=== PATIENT | male | born 1955 | race Caucasian/White ===

== ENCOUNTER 2016-05-09 18:47 | Emergency (ER) | payer MEDICAID ==
[2016-05-09 19:04] VITALS: PULSE 87; TEMP 97.9
[2016-05-09 19:07] LABS: % IMMATURE GRANULYOCYTES 0.5 % (0.0-1.1); ABSOLUTE IMMATURE GRANULOCYTES 0.05 10^3/uL (0.00-0.10); ADD DIFF? NO; ADD MORPH? NO; ADD SCAN? NO; ATYPICAL LYMPHOCYTE FLAG 10 (0-99); FRAGMENT RBC FLAG 0 (0-99); HEMOGLOBIN 16.4 g/dL (13.7-17.5); LEFT SHIFT FLG 0 (0-99); LIPEMIA HEMOLYSIS FLAG 80 (0-99); MEAN CELL HEMOGLOBIN 30.1 pg (27.9-34.1); MEAN CELL HEMOGLOBIN CONCENTR. 33.5 g/dL (32.4-36.7); MEAN CELL VOLUME 90.1 fL (81.5-99.8); PLATELET CLUMPS FLAG 10 (0-99); PLATELET COUNT 226 10^3/uL (150-400); RED BLOOD CELL COUNT 5.44 10^6/uL (4.40-6.38); RED CELL DISTRIBUTION WIDTH 13.5 % (11.5-15.2)
--- NOTE | 2016-05-09 19:12 | CPEKG ---
Heart Rate: 100 RR Interval: 600 P-R Interval: 176 QRSD Interval: 100 QT Interval: 364 QTC Interval: 470 P [place]: 77 QRS [place]: -26 T Wave [place]: 66 EKG Severity - OTHERWISE NORMAL ECG - EKG Impression: SINUS TACHYCARDIA EKG Impression: BORDERLINE LEFT AXIS DEVIATION Electronically Signed By: David Gonzalez 09-May-2016 21:06:18
--- NOTE | 2016-05-09 19:14 | EDPHY ---
H & P Stated Complaint: First Time Seizure Time Seen by Provider: 05/09/16 18:51 HPI/ROS: CHIEF COMPLAINT: First-time seizure HISTORY OF PRESENT ILLNESS: The patient presents to the emergency department via paramedics after a first-time seizure. The patient reportedly had a witnessed seizure lasting 3-4 minutes. He bit his tongue. The patient was postictal. The patient is accompanied by family members who observe the seizure. The patient did not fall or strike his head in a significant way. He did fall into some shelving which braced his fall to the ground. The patient takes only omeprazole. He has no prior history of seizure. The patient does not use drugs or alcohol. The patient currently complains of mild confusion and slight amnesia surrounding the events prior to arrival. His only complaint in the ED is a tongue bite/laceration. REVIEW OF SYSTEMS: A comprehensive 10 point review of systems is otherwise negative aside from elements mentioned in the history of present illness. Source: Patient, Family, EMS - Personal History Current Tetanus Diphtheria and Acellular Pertussis (TDAP): Yes Tetanus Vaccine Date: within 10 years - Medical/Surgical History Hx Asthma: No Hx Chronic Respiratory Disease: No Hx Diabetes: No Hx Cardiac Disease: No Hx Renal Disease: No Hx Cirrhosis: No Hx Alcoholism: No Hx HIV/AIDS: No Hx Splenectomy or Spleen Trauma: No Other PMH: GERD - Social History Smoking Status: Never smoked - Physical Exam Exam: General Appearance: Alert, postictal Eyes: Pupils equal and round no pallor or injection ENT, Mouth: Mucous membranes moist, tongue laceration noted, nonsuturable Respiratory: There are no retractions, lungs are clear to auscultation Cardiovascular: Regular rate and rhythm Gastrointestinal: Abdomen is soft and nontender, no masses, bowel sounds normal x2, non agitated Neurological: Alert and oriented x2, postictal, 5/5 strength all 4 extremities Skin: Warm and dry, no rashes Musculoskeletal: Neck is supple nontender Extremities: symmetrical, full range of motion Psychiatric: Alert and oriented Constitutional: Initial Vital Signs Temperature (C) 36.6 C 05/09/16 19:01 Heart Rate 87 05/09/16 19:01 Respiratory Rate 16 05/09/16 19:01 Blood Pressure 119/87 H 05/09/16 19:01 O2 Sat (%) 97 05/09/16 19:01 O2 Delivery Mode Room Air Allergies/Adverse Reactions: No Known Allergies Allergy (Unverified 05/09/16 19:00) Home Medications: Medication Instructions Recorded Omeprazole 05/09/16 Medical Decision Making - Diagnostics EKG Interpretation: EKG: Complete interpretation has been separately recorded in the [facility] archive. Summary impression: Sinus tachycardia, rate 100 Imaging: CT head without contrast: Negative for intracranial hemorrhage, mass or skull fracture. Study results reviewed by myself and discussed with radiologist Dr. Christian Massey ED Course/Re-evaluation: The patient presents to the ED after a witnessed first-time seizure. The patient did sustain a tongue abrasion/laceration which is nonsuturable. The patient is noted to have a metabolic acidosis consistent with his seizure. The patient was taken for noncontrast CT scan of his head which is unremarkable for evidence of intracranial hemorrhage or mass. The patient was observed in the emergency department and had multiple examinations by myself. The patient remained neurologically stable without recurrent seizure activity. The patient will be discharged home with customary aftercare instructions. His plan will be to follow up with Neurology for further evaluation. His seizure today was unprovoked. He has been instructed not to drive or participate in dangerous activities which could harm him or someone else in the event of a recurrent seizure. The patient will do warm salt water rinses for his tongue bite. Differential Diagnosis: Differential diagnosis considered includes seizure, intracranial hemorrhage, intracranial mass, syncope, arrhythmia, metabolic abnormality - Data Points Laboratory Results: Laboratory Results 05/09/16 18:55 05/09/16 18:55 05/09/16 05/09/16 18:55 18:55 WBC 10.33 10^3/uL H 10^3/uL (3.80-9.50) RBC 5.44 10^6/uL 10^6/uL (4.40-6.38) Hgb 16.4 g/dL g/dL (13.7-17.5) Hct 49.0 % % (40.0-51.0) MCV 90.1 fL fL (81.5-99.8) MCH 30.1 pg pg (27.9-34.1) MCHC 33.5 g/dL g/dL (32.4-36.7) RDW 13.5 % % (11.5-15.2) Plt Count 226 10^3/uL 10^3/uL (150-400) MPV 10.0 fL fL (8.7-11.7) Neut % (Auto) 40.1 % % (39.3-74.2) Lymph % (Auto) 49.0 % H % (15.0-45.0) Cross % (Auto) 8.4 % % (4.5-13.0) Eos % (Auto) 1.3 % % (0.6-7.6) Baso % (Auto) 0.7 % % (0.3-1.7) Nucleat RBC Rel Count 0.0 % % (0.0-0.2) Absolute Neuts (auto) 4.15 10^3/uL 10^3/uL (1.70-6.50) Absolute Lymphs (auto) 5.06 10^3/uL H 10^3/uL (1.00-3.00) Absolute Monos (auto) 0.87 10^3/uL H 10^3/uL (0.30-0.80) Absolute Eos (auto) 0.13 10^3/uL 10^3/uL (0.03-0.40) Absolute Basos (auto) 0.07 10^3/uL 10^3/uL (0.02-0.10) Absolute Nucleated RBC 0.00 10^3/uL 10^3/uL (0-0.01) Immature Gran % 0.5 % % (0.0-1.1) Immature Gran # 0.05 10^3/uL 10^3/uL (0.00-0.10) Sodium 142 mEq/L mEq/L (134-144) Potassium 3.7 mEq/L mEq/L (3.5-5.2) Chloride 103 mEq/L mEq/L (97-110) Carbon Dioxide 13 mEq/l L mEq/l (22-31) Anion Gap 26 mEq/L H mEq/L (8-16) BUN 11 mg/dL mg/dL (7-23) Creatinine 1.1 mg/dL mg/dL (0.7-1.3) Estimated GFR > 60 Glucose 98 mg/dL mg/dL (70-100) Calcium 9.8 mg/dL mg/dL (8.5-10.4) Departure - Departure Disposition: Home, Routine, Self-Care Clinical Impression: Seizure Condition: Good Instructions: New-Onset Seizure in Adults (ED) Additional Instructions: 1. No driving, dangerous activities such as riding a ski lift, swimming in a pool or other behavior that could put you or someone else at risk in the event of a recurrent seizure. You will need to be cleared by a neurologist to resume these activities. 2. Please return to the ED for recurrent seizure, headache, numbness, weakness, altered mental status or other concerns. 3. Please follow up with neurologist you have been referred to this week to schedule a follow-up appointment. Referrals: Nestor Zelaya MD [Medical Doctor] - As per Instructions
[2016-05-09 19:20] LABS: ANION GAP 26 mEq/L (8-16); CALCIUM 9.8 mg/dL (8.5-10.4); CARBON DIOXIDE 13 mEq/l (22-31); CHLORIDE 103 mEq/L (97-110); CREATININE 1.1 mg/dL (0.7-1.3); GLOMERULAR FILTRATION RATE > 60; GLUCOSE 98 mg/dL (70-100); POTASSIUM 3.7 mEq/L (3.5-5.2); SODIUM 142 mEq/L (134-144)
[2016-05-09 20:57] VITALS: BP 134/77; RESP 18; O2SAT 98
== END 2016-05-09 20:57 | disposition home or self-care (01) ==
LOC: EDUNIT#
DX: R56.9 Unspecified convulsions (principal)

== ENCOUNTER → 2016-05-24 | Outpatient (CLI) | payer MEDICAID ==
[~2016-05-24] MED LIST: GADOBUTROL 10 ML VIAL IVP ONE
== END ==
LOC: FIMAGING 18:46
PROVIDERS: ATTEND Psychiatry & Neurology Neurology
DX: R56.9 Unspecified convulsions (principal); M27.40 Unspecified cyst of jaw
CPT/HCPCS: A9585

== ENCOUNTER → 2016-06-17 | Outpatient (CLI) | payer MEDICAID ==
--- NOTE | 2016-06-20 10:11 | CPEEG ---
[f rep st] ELECTROENCEPHALOGRAM DATE OF STUDY: 06/17/2016 DATE OF INTERPRETATION: 06/20/2016. INTERPRETATION: This 4-hour video EEG recording was normal during wakefulness and partial sleep. There were no potentially epileptogenic abnormalities present during the recording. During the video EEG monitoring session, the patient did not have any clinical events. REPORT: This 4-hour video EEG contains 9 Hz alpha activity over the posterior head regions. There was no abnormal activation at rest, during photic stimulation, or hyperventilation. The patient intermittently became drowsy and fell into a light sleep throughout the study. He did not fall into deeper stages of sustained non-REM sleep. There was no abnormal activation during drowsiness, light sleep, or during times of arousal. The patient did not have any clinical events during the video EEG monitoring session. /[id number]/MODL MTDD
== END ==
LOC: FCPNEURO 08:42
PROVIDERS: ATTEND Psychiatry & Neurology Neurology
DX: R56.9 Unspecified convulsions (principal)